=== PATIENT | female | born 1985 | race Caucasian/White ===

== ENCOUNTER 2018-01-04 15:00 | Inpatient (IN) | payer OTHER ==
[~2018-01-04] VITALS: Ht 162.6 cm; Wt 92.5 kg
[~2018-01-04 15:00] MED LIST: VANDAZOLE70 GM VG
[2018-01-07] MEDS ORDERED: OXYC1TAB9 PO (09:06)
== END 2018-01-07 09:43 | disposition home or self-care (01) | DRG 777 ==
LOC: ER 15:00 → CIR.AMB 16:26 → SURG 01-05
PROC: 0UB60ZZ Excision of Left Fallopian Tube, Open Approach (ICD-10-PCS; principal; 2018-01-05)
PROC: 10T20ZZ Resection of Products of Conception, Ectopic, Open Approach (ICD-10-PCS; 2018-01-05)
PROC: 0UB10ZZ Excision of Left Ovary, Open Approach (ICD-10-PCS; 2018-01-05)
DX: O00.102 Left tubal pregnancy without intrauterine pregnancy (principal); N83.202 Unspecified ovarian cyst, left side

== ENCOUNTER 2021-06-25 08:47 | Outpatient (CLI) | payer OTHER ==
[~2021-06-25 08:47] MED LIST changes: +OXYC1TAB9 PO
== END 2021-06-25 08:59 | disposition home or self-care (01) ==
LOC: RX STUDY 08:47
DX: N91.2 Amenorrhea, unspecified (principal); N93.9 Abnormal uterine and vaginal bleeding, unspecified; Q50.6 Other congenital malformations of fallopian tube and broad ligament; E03.9 Hypothyroidism, unspecified; E28.9 Ovarian dysfunction, unspecified; E22.1 Hyperprolactinemia; B06.9 Rubella without complication